=== PATIENT | male | born 1990 | race Caucasian/White ===

== ENCOUNTER 2017-12-27 22:02 | Emergency (ER) | payer BC, OTHER ==
[~2017-12-27] VITALS: Ht 172.7 cm; Wt 81.6 kg
[~2017-12-27 22:02] MED LIST: ATIVAN1 MG ORAL; NKM; PHENERGAN25 M1 ORAL
--- NOTE | 2017-12-27 22:35 | Emergency Room Report ---
History of Present Illness General Chief Complaint: Overdose Source: Patient Present Illness HPI Is a 27-year-old male with a history of heroin abuse. He said he normally injected but today he smoked it and also took some Xanax. Friend called 911 because he'll be in was unresponsive. On arrival, EMS said that he was cyanotic and has pinpoint pupil. They gave him a dose of Narcan which woke him up. He's been fine since then. Denies suicidal thought or homicidal thought. Denies any nausea vomiting. Denies any suicide attempt. No homicidal thought. No hallucination. Allergies: Coded Allergies: No Known Allergies (Unverified , 02/25/14) Patient History Past Medical History: see triage record, old chart reviewed Past Surgical History: none Pertinent Family History: none Social History: Reports: smoking, drug use Immunizations: other Reviewed Nursing Documentation: PMH: Agreed; PSxH: Agreed Nursing Documentation-PMH Past Medical History: No Stated History Hx Seizures: Yes - ANAPYLAXIS - UNKNOWN CAUSE Review of Systems Eye: Denies: eye pain, blurred vision ENT: Denies: ear pain, nose congestion, throat swelling Respiratory: Denies: cough, shortness of breath Cardiovascular: Denies: chest pain, palpitations Gastrointestinal: Denies: abdominal pain, diarrhea, nausea, vomiting Musculoskeletal: Denies: back pain, joint pain Skin: Denies: rash Neurological: Denies: headache, numbness Endocrine: Denies: increased thirst, increased urine Hematologic/Lymphatic: Denies: easy bruising All Other Systems: negative except mentioned in HPI Physical Exam Vital Signs Date Time Temp Pulse Resp B/P (MAP) Pulse Ox O2 Delivery O2 Flow Rate FiO2 12/27/17 21:55 98.1 100 18 136/80 98 98.1 12/27/17 22:02 Room Air vitals normal Sp02 EP Interpretation: reviewed, normal General Appearance: well appearing, no apparent distress, alert Head: normocephalic, atraumatic Eyes: bilateral eye PERRL, bilateral eye EOMI ENT: hearing grossly normal, normal pharynx Neck: full range of motion, supple, no meningismus Respiratory: chest non-tender, lungs clear, normal breath sounds Cardiovascular #1: regular rate, rhythm, no murmur Gastrointestinal: normal bowel sounds, non tender, no mass, no organomegaly, no bruit, non-distended Musculoskeletal: back normal, gait/station normal, normal range of motion Psychiatric: mood/affect normal Skin: warm/dry Medical Decision Making Diagnostic Impression: Primary Impression: Accidental heroin overdose Qualified Codes: T40.1X1A - Poisoning by heroin, accidental (unintentional), initial encounter ER Course Patient with heroin overdose. He's been awake for over an hour now. We'll discharge home. No criteria for 5150. This patient is a chronic risk of self injury due to poor impulse control, limited coping skills, and judgment intermittently impaired by intoxication. I believe that the available clinical evidence to suggest that these characteristics derived primarily from personality disorder and are likely very stable over time. Hospitalization would likely attenuate risk of self-harm only during usp period, without lasting risk reduction. Serious self-harm , while possible, would likely be inadvertent, and because of impulsivity, and foreseeable. For these reasons, I do not believe hospitalization would provide meaningful reduction in risk of self-harm. Last Vital Signs Date Time Temp Pulse Resp B/P (MAP) Pulse Ox O2 Delivery O2 Flow Rate FiO2 12/27/17 22:02 100 18 Room Air 12/27/17 21:55 98.1 136/80 98 98.1 Status: improved Disposition: HOME, SELF-CARE Condition: Stable Referrals: NOT CHOSEN IPA/,REFERRING (PCP) Additional Instructions: Stop using drugs. Told to rehabilitation. Follow-up with his your doctor in 7 days. Return of worse. PATRICIO GOFF M.D. December 27, 2017 22:35
[2017-12-27 23:08] VITALS: BP 106/52
[2017-12-27 23:10] VITALS: BP 106/52
== END 2017-12-27 23:10 | disposition home or self-care (01) ==
LOC: EDBD 22:02 → EMR 22:13
DX: T40.1X1A Poisoning by heroin, accidental (unintentional), initial encounter (principal); Y92.009 Unspecified place in unspecified non-institutional (private) residence as the place of occurrence of the external cause
CPT/HCPCS: 99283